=== PATIENT | female | born 1950 | race African-American/Black ===

== ENCOUNTER 2017-01-07 10:33 | Emergency (ER) | payer MEDICARE ==
[~2017-01-07] VITALS: Ht 154.9 cm; Wt 73.5 kg
[2017-01-07] MEDS ORDERED: PLAQUENIL200 MG ORAL (10:45)
[2017-01-07] MEDS ORDERED: IBUPROFEN600 MG ORAL (10:48)
[2017-01-07] MEDS ORDERED: GLEEVEC400 MG ORAL (10:48)
[2017-01-07] MEDS ORDERED: FOLIC ACID1 MG ORAL (10:48)
[2017-01-07] MEDS ORDERED: FUROSEMIDE20 M1 ORAL (10:49)
[2017-01-07] MEDS ORDERED: ASPIR-LOW81 MG ORAL (10:49)
[2017-01-07] MEDS ORDERED: NORVASC2.5 MG ORAL (10:49)
[2017-01-07] MEDS ORDERED: DIOVAN80 MG ORAL (10:49)
[2017-01-07 10:51] VITALS: BP 130/82
[2017-01-07] MEDS ORDERED: ACETAMINOPHEN500 M3 ORAL (11:08)
--- NOTE | 2017-01-07 11:12 | Emergency Room Report ---
History of Present Illness General Chief Complaint: Pain Source: Patient Present Illness HPI Patient with a history of rheumatoid arthritis, as well as hip surgery on frequent ibuprofen and plaque 10. Reports tripping and falling at home onto her front with subsequent hip pain as well as progressive pain in the left shoulder and bilateral knees for the last 2 days. She's been taking ibuprofen. There is no inability to move for ambulate. There is no striking of the head. The patient not lose consciousness. She describes no chest pain or syncopal prodrome or history of cardiac issues. She came in because she's been sore and she went to make sure there is nothing wrong. She os states she has to leave to go see her skilled nursing case manager in the next hour. Allergies: Uncoded Allergies: SULFA (Allergy, Unknown, 01/07/17) Patient History Past Medical History: see triage record Social History: Denies: alcohol use, drug use, smoking Immunizations: UTD Reviewed Nursing Documentation: PMH: Agreed Nursing Documentation-PMH Past Medical History: No History, Except For Hx Cardiac Problems: No - Thalesemia,RA,Renal Insufficency Review of Systems Musculoskeletal: Reports: joint pain, muscle pain, muscle stiffness, see HPI All Other Systems: negative except mentioned in HPI Physical Exam Vital Signs Date Time Temp Pulse Resp B/P Pulse Ox O2 Delivery O2 Flow Rate FiO2 01/07/17 10:36 98.6 82 16 130/82 97 Room Air Sp02 EP Interpretation: reviewed, normal General Appearance: normal inspection, well appearing, no apparent distress, alert Head: atraumatic Eyes: bilateral eye normal inspection ENT: normal ENT inspection, hearing grossly normal, normal voice Neck: normal inspection, full range of motion, supple, no bony tend Respiratory: normal inspection, lungs clear, normal breath sounds, no respiratory distress, no retraction, no wheezing Cardiovascular #1: regular rate, rhythm, no edema Gastrointestinal: normal inspection, normal bowel sounds, non tender, soft, no guarding, no hernia Genitourinary: no CVA tenderness Musculoskeletal: normal inspection, back normal, normal range of motion Neurologic: normal inspection, alert, responsive, speech normal Psychiatric: normal inspection, judgement/insight normal, mood/affect normal Skin: normal inspection, normal color, no rash Medical Decision Making Diagnostic Impression: Primary Impression: Pain Additional Impression: rheumatoid arthritis ER Course Patient with generalized pain in the hip and shoulder with some complaint of a fall couple of days ago. Her neurologic and muscle skeletal exam shows no signs of deformity, laxity in the joints or signs of obvious fracture or dislocations. Patient be given Tylenol here and she has a followup with her skilled nursing case manager. She does have a history of anemia and has had transfusions in the past. Her blood pressure and vitals are stable here and she is able to were without signs of syncopal. I reassured her that I felt there any muscle skeletal injuries and that she would be safe to followup. Last Vital Signs Date Time Temp Pulse Resp B/P Pulse Ox O2 Delivery O2 Flow Rate FiO2 01/07/17 10:51 98.6 16 130/82 97 Room Air 01/07/17 10:36 82 Disposition: HOME, SELF-CARE Condition: Stable Scripts Acetaminophen* (ACETAMINOPHEN EXTRA STRENGTH*) 500 Mg Tablet 500 MG ORAL Q8H Y for Fever/Headache/Mild Pain, #30 TAB Prov: Navdeep Taylor MD 01/07/17 Patient Instructions: Fall Prevention in the Home, [id number], Arthritis, [id number] Additional Instructions: Is followup with her skilled nursing case manager, as well as her primary doctor regarding her recurrent redness and general aches and discomfort. Navdeep Taylor MD Jan 07, 2017 11:12
[2017-01-07] MEDS ORDERED: Acetaminophen 500mg (ES) tab ORAL ONE (11:15)
== END 2017-01-07 11:31 | disposition home or self-care (01) ==
LOC: EMR 11:19
DX: M06.9 Rheumatoid arthritis, unspecified (principal)
CPT/HCPCS: 99283